=== PATIENT | female | born 2000 | race African-American/Black ===

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

== ENCOUNTER 2020-07-19 08:18 | Emergency (ER) | payer MEDICAID, SELFPAY | END 2020-07-19 09:00 | disposition home or self-care (01) | LOC: MADERS 08:18 | DX: K08.89 Other specified disorders of teeth and supporting structures (principal) | CPT/HCPCS: 99282 ==

== ENCOUNTER 2020-09-20 22:35 | Emergency (ER) | payer MEDICAID ==
[2020-09-20] MEDS ORDERED: predniSONE 20 MG TAB ONE (22:55)
[2020-09-21 16:49] LABS: SARS-CoV-2 PCR by NAA Not Detected (NotDetected)
== END 2020-09-20 23:03 | disposition home or self-care (01) ==
LOC: MADERS 22:35
DX: J32.9 Chronic sinusitis, unspecified (principal); Z20.822 Contact with and (suspected) exposure to COVID-19; J34.89 Other specified disorders of nose and nasal sinuses; M79.10 Myalgia, unspecified site
CPT/HCPCS: 99283; J7512; U0003; U0005

== ENCOUNTER 2021-01-24 13:49 | Emergency (ER) | payer MEDICAID ==
[2021-01-25 01:01] LABS: SARS-CoV-2 PCR by NAA Not Detected (NotDetected)
== END 2021-01-24 15:30 | disposition home or self-care (01) ==
LOC: MADERS 13:49
DX: B34.9 Viral infection, unspecified (principal); Z20.822 Contact with and (suspected) exposure to COVID-19
CPT/HCPCS: 99284; U0003; U0005

== ENCOUNTER 2021-03-24 17:09 | Emergency (ER) | payer SELFPAY ==
[2021-03-25 15:53] LABS: SARS-CoV-2 PCR by NAA DETECTED (NotDetected)
== END 2021-03-24 18:00 | disposition home or self-care (01) ==
LOC: MADERS 17:09
DX: U07.1 COVID-19 (principal)
CPT/HCPCS: 99283; U0003; U0005

== ENCOUNTER 2021-05-18 12:08 | Emergency (ER) | payer OTHER, SELFPAY | END 2021-05-18 13:25 | disposition home or self-care (01) | LOC: MADERS 12:08 | DX: J06.9 Acute upper respiratory infection, unspecified (principal) | CPT/HCPCS: 87804; 99283 ==

== ENCOUNTER 2021-07-14 17:14 | Emergency (ER) | payer SELFPAY | END 2021-07-14 17:50 | disposition home or self-care (01) | LOC: MADERS 17:14 | DX: M79.10 Myalgia, unspecified site (principal) | CPT/HCPCS: 99283 ==

== ENCOUNTER 2021-09-06 15:37 | Emergency (ER) | payer MEDICAID ==
[2021-09-06] MEDS ORDERED: Ibuprofen 600 MG TAB ONE (16:35)
== END 2021-09-06 16:41 | disposition home or self-care (01) ==
LOC: MADERS 15:37
DX: M25.571 Pain in right ankle and joints of right foot (principal)
CPT/HCPCS: 99283

== ENCOUNTER 2023-01-07 10:43 | Emergency (ER) | payer MEDICAID, SELFPAY | END 2023-01-07 13:48 | disposition home or self-care (01) | LOC: MADERS 10:43 | DX: J10.1 Influenza due to other identified influenza virus with other respiratory manifestations (principal); Z20.822 Contact with and (suspected) exposure to COVID-19 | CPT/HCPCS: 87635; 87804; 99283 ==

== ENCOUNTER 2023-01-25 12:23 | Emergency (ER) | payer SELFPAY | END 2023-01-25 14:02 | disposition home or self-care (01) | LOC: MADERS 12:23 | DX: U07.1 COVID-19 (principal); J06.9 Acute upper respiratory infection, unspecified | CPT/HCPCS: 87635; 99284 ==

== ENCOUNTER 2023-05-30 21:18 | Emergency (ER) | payer SELFPAY ==
[2023-05-31] MEDS ORDERED: Lidocaine-Prilocaine 2.5% Cream 5 GM TUBE ONE (01:14)
[2023-05-31] MEDS ORDERED: Lidocaine 1% PF 5 ML VIAL ONE (01:25)
[2023-05-31] MEDS ORDERED: Bacitracin 1 PK ONE (01:39)
== END 2023-05-31 01:43 | disposition home or self-care (01) ==
LOC: MADERS 21:18
DX: T16.1XXA Foreign body in right ear, initial encounter (principal)
CPT/HCPCS: 69200; 99282

== ENCOUNTER 2023-09-15 20:23 | Emergency (ER) | payer SELFPAY ==
[2023-09-15 21:23] LABS: Influenza A by NAA Not Detected (NotDetected); Influenza B by NAA Not Detected (NotDetected); SARS-CoV-2 NAA Rapid Test Not Detected (NotDetected)
[2023-09-15 21:36] LABS: Bilirubin Negative (Negative); Blood, Urine Negative (Negative); Clarity Clear (Clear); Glucose, Urine (Dipstick) Negative (Negative); Ketone, Urine Negative (Negative); Leukocyte Negative (Negative); Nitrite Negative (Negative); Protein, Urine (Dipstick) Negative (Neg-Trace); Specific Gravity, Urine 1.015 (1.005-1.030); pH, Urine 7.5 (5.0-9.0)
[2023-09-15 21:39] LABS: Pregnancy Test - Urine (BHCG) Negative (Negative); Pregu Control Background? CLEAR/WHITE (CLR/WHITE); Pregu Control Bar Appear? YES (CONTROL BAR); Specific Gravity 1.015 (1.002-1.036)
[2023-09-15 21:40] LABS: CAUTI Indications for Culture Pelvic or flank pain; RBC/HPF None Seen HPF (0-3); Squamous Epithelial 0-3 HPF (0-3); WBC/HPF 0-3 HPF (0-3)
[2023-09-15 21:41] LABS: Urine Culture Reflex No No
== END 2023-09-15 22:23 | disposition home or self-care (01) ==
LOC: MADERS 20:23
DX: K52.9 Noninfective gastroenteritis and colitis, unspecified (principal)
CPT/HCPCS: 81001; 81025; 99284

== ENCOUNTER 2023-11-16 15:47 | Emergency (ER) | payer SELFPAY ==
[2023-11-16 16:52] LABS: Bilirubin Negative (Negative); Blood, Urine Trace (Negative); Clarity Clear (Clear); Glucose, Urine (Dipstick) Negative (Negative); Ketone, Urine Negative (Negative); Leukocyte Negative (Negative); Nitrite Negative (Negative); Protein, Urine (Dipstick) Negative (Neg-Trace); Urobilinogen 0.2 mg/dL (Less than 2); pH, Urine 5.5 (5.0-9.0)
[2023-11-16 17:00] LABS: Pregnancy Test - Urine (BHCG) Negative (Negative); Pregu Control Background? CLEAR/WHITE (CLR/WHITE); Pregu Control Bar Appear? YES (CONTROL BAR)
[2023-11-16 17:01] LABS: Bacteria/HPF Rare-Few HPF (None Seen); CAUTI Indications for Culture Pelvic or flank pain; RBC/HPF 0-3 HPF (0-3); WBC/HPF 0-3 HPF (0-3)
[2023-11-16 17:03] LABS: Urine Culture Reflex No No
== END 2023-11-16 17:33 | disposition home or self-care (01) ==
LOC: MADERS 15:47
DX: R10.30 Lower abdominal pain, unspecified (principal)
CPT/HCPCS: 81001; 81025; 99284

== ENCOUNTER 2024-05-09 10:08 | Emergency (ER) | payer SELFPAY ==
[2024-05-09] MEDS ORDERED: Acetaminophen 500 MG TAB ONE (10:25)
[2024-05-09] MEDS ORDERED: Oseltamivir 75 MG CAP ONE (10:42)
== END 2024-05-09 10:53 | disposition home or self-care (01) ==
LOC: MADERS 10:08
DX: J11.1 Influenza due to unidentified influenza virus with other respiratory manifestations (principal)
CPT/HCPCS: 99283